=== PATIENT | female | born 1960 | race African-American/Black ===

== ENCOUNTER → 2017-06-09 | Outpatient (CLI) | payer MEDICARE ==
--- NOTE | ~2017-06-09 | CT137 ---
[facility] A Service of [facility] RADIOLOGY TEXT RESULTS PATIENT: BERTHA DUNHAM LOCATION: [facility] : 58 UNIT #: [id number] AGE: [address]: Juhi Monson MD SEX: F ORDER DR: [id number] [facility] [address] [place], [place] [address] [id number] O MR#: [id number] #: [id number] NAME: BERTHA DUNHAM : 1960 SEX: F STUDY DATE/TIME: 06/09/2017 8:20 UNIT: [facility] ROOM: STUDY DESCRIPTION: CT Lung Screening annual Attending Physician: Juhi Monson M.D. Referring Physician: Juhi Monson M.D. Ordering Physician: Juhi Monson M.D. Primary Care Physician: Juhi Monson M.D. MEDICAL IMAGING REPORT This report is preliminary unless electronic signature is present EXAM CT chest INDICATIONS Lung cancer screening. 56-year-old female is a current smoker with a 30 pack year history of smoking. TECHNIQUE CT of the thorax without contrast. Coronal and sagittal reconstructions were obtained. The exam is performed as a low-dose chest CT utilizing the lung cancer screening protocol. CTDI volume 2.6 mGy. DLP 97.04 mGy-cm. This CT exam was performed with one or more of the following radiation dose reduction techniques: automatic control, adjustment of mA and/or kV according to patient size, and iterative reconstruction. COMPARISON CT chest dated 09/04/2014. FINDINGS This is a negative lung cancer screening. No suspicious pulmonary nodules. Central airways are patent. No focal consolidation. No pericardial or pleural effusion. The thoracic aorta is normal in caliber. There has been prior right breast reconstruction. Bilateral silicone implants are noted. IMPRESSION 1. Negative lung cancer screening. [facility] A Service [facility] RADIOLOGY TEXT RESULTS PATIENT: BERTHA DUNHAM LOCATION: [facility] : 58 UNIT #: [id number] AGE: [address]: Juhi Monson MD SEX: F ORDER DR: 2. ACR LungRADS classification 1: Negative examination. RECOMMENDATIONS Annual lung cancer screening with a low-dose chest CT. Dictated by... Saturnino Willis M.D. THIS IS AN ELECTRONICALLY VERIFIED REPORT Saturnino Willis M.D. at 06/10/2017 6:52 AM RPMaximino/belle TD: 06/09/2017 16:13 JOB #: [id number] MEDICAL IMAGING REPORT Page 1 of 1 COPY
== END | disposition home or self-care (01) ==
LOC: CCAT 07:58
DX: F17.210 Nicotine dependence, cigarettes, uncomplicated (principal)
CPT/HCPCS: G0297